=== PATIENT | female | born 1950 | race Caucasian/White ===

== ENCOUNTER 2016-09-21 18:45 | Emergency (ER) | payer BC, MEDICARE ==
[2016-09-21 19:07] VITALS: BP 136/60
--- NOTE | 2016-09-21 19:16 | UC ---
Throat Pain/Nasal Thomas HPI - HPI Summary HPI Summary: complaint of productive cough and nsal congestion that started approx 2 weeks ago for the last 3 days feels pressure in the right side of her face feels pressure behind her eye headache for several days slight ear pain at times took some aspirin without relief denies sore throat and fever - History of Current Complaint Chief Complaint: UCGeneralIllness Stated Complaint: POSSIBLE SINUS INFECTION Time Seen by Provider: 09/21/16 19:10 Hx Obtained From: Patient - Allergies/Home Medications Allergies/Adverse Reactions: Allergies Allergy/AdvReac Type Severity Reaction Status Date / Time No Known Allergies Allergy Verified 09/21/16 19:07 Home Medications: Home Medications Ibuprofen TAB* [Motrin TAB* 800 MG] 800 mg PO TID 09/21/16 [History Confirmed ] PMH/Surg Hx/FS Hx/Imm Hx Previously Healthy: Yes - psoriasis - Surgical History Surgical History: Yes Surgery Procedure, Year, and Place: laporascopic left knee surgery. appendix. gallbladder - Family History Known Family History: Negative: Cardiac Disease, Diabetes - Social History Occupation: Employed Full-time Lives: With Family Alcohol Use: Occasionally Alcohol Amount: 1x Substance Use Type: None Smoking Status (MU): Light Every Day Tobacco Smoker Type: Cigarettes Amount Used/How Often: 1/2PPD Length of Time of Smoking/Using Tobacco: 40+ years Have You Smoked in the Last Year: Yes Cessation Counseling: Patient Advised to Stop Review of Systems Constitutional: Negative Skin: Negative Eyes: Negative ENT: Negative, Nasal Discharge Respiratory: Cough Cardiovascular: Negative Gastrointestinal: Negative Genitourinary: Negative Motor: Negative Neurovascular: Negative Musculoskeletal: Negative Neurological: Negative Psychological: Negative All Other Systems Reviewed And Are Negative: Yes Physical Exam Triage Information Reviewed: Yes Appearance: No Pain Distress, Well-Nourished Vital Signs: Initial Vital Signs Temp 98.5 F 09/21/16 19:03 Pulse 82 09/21/16 19:03 Resp 17 09/21/16 19:03 BP 136/60 09/21/16 19:03 Pulse Ox 100 09/21/16 19:03 Vital Signs Reviewed: Yes Eyes: Positive: Conjunctiva Clear ENT: Positive: Pharyngeal erythema, Nasal congestion, Nasal drainage, TMs normal , Other: - righ frontal and maxillary sinus tendernss Neck: Positive: No Lymphadenopathy Respiratory: Positive: Lungs clear, Normal breath sounds, No respiratory distress, No accessory muscle use Cardiovascular: Positive: RRR, No Murmur, Pulses Normal, Brisk Capillary Refill Abdomen Description: Positive: Nontender, No Organomegaly, Soft Bowel Sounds: Positive: Present Musculoskeletal: Positive: No Edema Neurological: Positive: Alert Psychological Exam: Normal Skin Exam: Normal Throat Pain/Nasal Course/Dx - Differential Dx/Diagnosis Differential Diagnosis/HQI/PQRI: Pharyngitis, Sinusitis Provider Diagnoses: sinusitis Discharge - Discharge Plan Condition: Stable Disposition: HOME Prescriptions: Amoxicillin/Clavulanate TAB* [Augmentin TAB 875*] 875 mg PO BID #20 tab Patient Education Materials: Sinusitis (ED) Referrals: Vidya Hardy MD [Primary Care Provider] - Additional Instructions: SINUSITIS What is Sinusitis? Sinusitis is inflammation or infection of the lining of the sinuses behind the bones in your cheeks or forehead. Sinusitis may occur following a common cold, flu, or other infection; allergies; a tooth infection that spreads to the sinuses; swimming in contaminated water; pressure changes in airplanes at high altitudes; violent sneezing or nose blowing or smoking or breathing other peoples smoke. Symptoms Might Include: Nasal Congestion Sneezing Watery eyes, eye irritation, or eye itching Headaches Pressure in the cheeks Wheezing Trouble smelling Sore throat and coughing may occur Treatment Recommendations: Take medicines as prescribed until completely gone. Drink plenty of fluids. Use saline nose spray to thin the mucous and help the sinuses drain. Use a vaporizer or humidifier. Apply warm compresses to the face or forehead several times a day for 10 to 20 minutes. Call Your Doctor or Return Here IF: Your pain increases during treatment. You develop a high temperature. You develop unusual swelling around the eyes. You have difficulty with your vision. You develop a severe headache, earache, or toothache. You develop increased fever or fever that does not respond to medication such as Tylenol?. You have difficulty breathing or catching your breath. You begin to have any other new symptoms that worry you.
== END 2016-09-21 19:28 | disposition home or self-care (01) ==
LOC: UCCORT 18:45
DX: J32.9 Chronic sinusitis, unspecified (principal); F17.210 Nicotine dependence, cigarettes, uncomplicated
CPT/HCPCS: 99202; G0463

== ENCOUNTER 2017-12-16 15:33 | Emergency (ER) | payer BC, MEDICARE ==
[2017-12-16 16:40] VITALS: BP 129/55
--- NOTE | 2017-12-16 17:46 | UC ---
Ear Complaint HPI - HPI Summary HPI Summary: Pt presents with c/o right ear pain and loss of hearing. X 2 days. - History of Current Complaint Chief Complaint: UCEar Stated Complaint: RIGHT EAR PLUGGED/PAINFUL Time Seen by Provider: 12/16/17 17:24 Hx Obtained From: Patient ?: No Onset/Duration: Gradual Onset, Lasting Days, Still Present Severity Initially: Mild Severity Currently: Moderate Pain Intensity: 0 Associated Signs/Symptoms: Positive: Hearing Loss - Allergies/Home Medications Allergies/Adverse Reactions: Allergies Allergy/AdvReac Type Severity Reaction Status Date / Time No Known Allergies Allergy Verified 12/16/17 16:32 Home Medications: Home Medications Acetaminophen [Acetaminophen Extra Strength] 1,000 mg PO Q6H PRN 12/16/17 [ History Confirmed 12/16/17] Acitretin [Soriatane] 25 mg PO DAILY 12/16/17 [History Confirmed 12/16/17] Gabapentin CAP(*) [Neurontin 300 CAP(*)] 300 mg PO BID 12/16/17 [History Confirmed 12/16/17] traMADol TAB* [Ultram*] 50 mg PO Q12H PRN 12/16/17 [History Confirmed 12/16/17] PMH/Surg Hx/FS Hx/Imm Hx Previously Healthy: Yes - Surgical History Surgical History: Yes Surgery Procedure, Year, and Place: laporascopic left knee surgery. appendix. gallbladder. R knee arthroascopy. nerve blocks. - Family History Known Family History: Negative: Cardiac Disease, Diabetes - Social History Occupation: Retired Lives: With Family Alcohol Use: Occasionally Alcohol Amount: 1x Substance Use Type: None Smoking Status (MU): Heavy Every Day Tobacco Smoker Type: Cigarettes Amount Used/How Often: 1/2PPD Length of Time of Smoking/Using Tobacco: 40+ years Have You Smoked in the Last Year: Yes Review of Systems Constitutional: Negative Skin: Negative Eyes: Negative ENT: Ear Ache Respiratory: Negative Cardiovascular: Negative Gastrointestinal: Negative Genitourinary: Negative Motor: Negative Neurovascular: Negative Musculoskeletal: Negative Neurological: Negative Psychological: Negative Is Patient Immunocompromised?: No All Other Systems Reviewed And Are Negative: Yes Physical Exam Triage Information Reviewed: Yes Appearance: Well-Appearing Vital Signs: Initial Vital Signs Temp 98.6 F 12/16/17 16:36 Pulse 78 12/16/17 16:36 Resp 18 12/16/17 16:36 BP 129/55 12/16/17 16:36 Pulse Ox 98 12/16/17 16:36 Vital Signs Reviewed: Yes Eye Exam: Normal ENT Exam: Other - cerument impaction bilateral ears Dental Exam: Normal Neck exam: Normal Respiratory Exam: Normal Respiratory: Positive: No respiratory distress Musculoskeletal Exam: Normal Neurological Exam: Normal Psychological Exam: Normal Skin Exam: Normal Ear Complaint Course/Dx - Differential Dx/Diagnosis Differential Diagnosis/HQI/PQRI: Cerumen Impaction, URI Provider Diagnoses: cerumen impaction bilateral ears Discharge - Sign-Out/Discharge Documenting (check all that apply): Patient Departure All imaging exams completed and their final reports reviewed: No Studies - Discharge Plan Condition: Stable Disposition: HOME Patient Education Materials: Cerumen Impaction (ED) Referrals: Vidya Hardy MD [Primary Care Provider] - If Needed - Billing Disposition and Condition Condition: STABLE Disposition: Home
== END 2017-12-16 17:53 | disposition home or self-care (01) ==
LOC: UCCORT 15:33
DX: H61.23 Impacted cerumen, bilateral (principal); F17.210 Nicotine dependence, cigarettes, uncomplicated
CPT/HCPCS: 99213; G0463